=== PATIENT | male | born 1995 | race Asian ===

== ENCOUNTER 2017-06-08 00:27 | Emergency (ER) | payer BC ==
[~2017-06-08] VITALS: Ht 182.9 cm; Wt 81.0 kg
[2017-06-08 00:32] VITALS: BP 115/65; PULSE 77; TEMP 36.6; O2SAT 98; Ht 182.9 cm; Wt 81.0 kg
[2017-06-08] MEDS ORDERED: CEPHALEXIN 500MG HOME PACK 1 EA BTL PO ONE (00:45)
[2017-06-08] MEDS ORDERED: CEPH500C PO (00:47)
--- NOTE | 2017-06-08 07:18 | EMERGENCY ROOM VISIT NOTE ---
History First contact with patient: 00:37 Chief Complaint: LEG PAIN,LEG INJURY Stated Complaint: RT LEG HURT History of Present Illness The patient is a 21 year old male who presents to the Emergency Room with complaints of pain and swelling to his right lower leg. The patient is evidently very active in athletics, and suffered abrasion to his right lower leg after diving for a ball 2 days ago. The patient has been cleaning and dressing the abrasion at home, but he states it has become increasingly tender and warm. The patient has not had fever or chills. He is not diabetic. He rates his discomfort a 6/10. Review of Systems More than 6 systems were reviewed and otherwise negative with the exception of history of present illness. Past Medical/Surgical History No chronic medical disease Family History No pertinent family history Social History Smoking Status: Never Smoker Occupation Status: [employer] student Current/Historical Medications Scheduled Cephalexin Monohydrate (Keflex), 500 MG PO TID Physical Exam Vital Signs Date Time Temp Pulse Resp B/P (MAP) Pulse Ox O2 Delivery O2 Flow Rate FiO2 06/08/17 00:32 36.6 77 20 115/65 98 Room Air Physical Exam VITALS: Vitals are noted on the nurse's note and reviewed by myself. Vital signs stable. GENERAL: Well-developed, well-nourished, male, who is in no acute distress and resting comfortably. Patient is cooperative with the examination. HEAD: Normocephalic atraumatic. HEART: Regular rate and rhythm without murmurs gallops or rubs. LUNGS: Clear to auscultation bilaterally without wheezes, rales or rhonchi. No retractions or accessory muscle use. MUSCULOSKELETAL: There is a large area of superficial abrasion along the right lateral calf measuring approximately 11 x 6 cm in dimension. There is no active bleeding, however this area is erythematous and tender on exam. There is a small amount of erythema surrounding this, but not more than 1-2 cm circumferentially. There is no lymphangitic streaking or palpable cords. Clinically this is most consistent with a cellulitis Medical Decision & Procedures ED Course Physical exam and history were performed. Nursing notes, EMR, and Medication List were personally reviewed. Patient appears to have a cellulitis of the right lower leg after suffering abrasion during athletics. The patient is reportedly up-to-date on his tetanus. He does not have active bleeding and does not appear septic. I will start the patient on Keflex. He is to follow with his primary care physician or [facility] in the next few days for recheck. He was otherwise invited back to the ER with any new, worsening, or concerning symptoms. The chart was completed utilizing [employer] Speech Voice Recognition Software. Grammatical errors, random word insertions, pronoun errors, and incomplete sentences are an occasional consequence of this system due to software limitations, ambient noise, and hardware issues. Any formal questions or concerns about the content, text, or information contained within the body of this dictation should be directly addressed to the provider for clarification. . Medical Decision Differential diagnosis: Etiologies such as cellulitis, abscess, MRSA infection, DVT, necrotizing fasciitis, dermatitis, drug eruption, as well as others were entertained.. Impression Primary Impression: Cellulitis of right leg Departure Information Dispostion Home / Self-Care Condition GOOD Prescriptions Cephalexin Monohydrate (Keflex) 500 Mg Cap 500 MG PO TID for 7 Days, #21 CAP Prov: Saurabh Mcneal PA-C 06/08/17 Referrals No Doctor, Assigned [facility] (PCP) Forms HOME CARE DOCUMENTATION FORM, IMPORTANT VISIT INFORMATION Patient Instructions My [facility] Additional Instructions You were seen and evaluated today on an emergency basis only. This is not a substitute for, or an effort to provide, complete comprehensive medical care. It is not possible to recognize and treat all injuries or illnesses in a single emergency department visit. For this reason it is recommended that you followup with your primary care physician or [facility] this week for ongoing care. Cephalexin(Keflex) 500mg: Take one pill 3 times daily for 7 days for your skin infection. All antibiotics can cause diarrhea. If this occurs and you feel worse or it does not resolve in 1-2 days follow up with your doctor or return to the Emergency Department as this could be signs of serious underlying problems. Any medication can cause an allergic reaction, stop the pills immediately and return to the ER for rash, hives, breathing difficulties, or swelling. You are welcome to return to the emergency department anytime with new, worsening, or concerning symptoms.
== END 2017-06-08 00:58 | disposition home or self-care (01) ==
LOC: C.EDB 00:29 → C.EDC 00:58
DX: L03.115 Cellulitis of right lower limb (principal)